=== PATIENT | female | born 1990 | race Caucasian/White ===

== ENCOUNTER 2016-02-10 22:27 | Outpatient (CLI) | payer SELFPAY ==
[2016-02-10 23:00] LABS: APPEARANCE,URINE CLEAR; BILIRUBIN,URINE NEGATIVE (NEGATIVE); GLUCOSE, URINE NEGATIVE (NEGATIVE); KETONES,URINE NEGATIVE (NEGATIVE); LEUKOCYTE ESTERASE,URINE NEGATIVE (NEGATIVE); NITRITE,URINE NEGATIVE (NEGATIVE); PROTEIN,URINE NEGATIVE (NEGATIVE); URINE SPECIFIC GRAVITY 1.014
[2016-02-10 23:19] LABS: URINE BARBITURATES SCREEN NEGATIVE; URINE METHADONE SCREEN NEGATIVE; URINE PHENCYCLIDINE SCREEN NEGATIVE
--- NOTE | 2016-02-11 04:48 | L&D General Admission ---
General Admit Datetime Report Generated by CPN: 02/11/2016 04:45 INFORMATION Patient Age: 26 (02/10/2016 22:27:QS system process) EDC: 04/27/2016 00:00 (02/10/2016 22:37:María Lattibeaudeir, RN) Para: 3 (02/11/2016 00:17:Malinda Ruvalcaba, RN) Baby, Number in Womb: 1 (02/11/2016 00:17:Malinda Ruvalcaba, RN) CARE Primary Bufferer: Other-Annotate (02/10/2016 22:56:Malinda Ruvalcaba RN) Bufferer Other: Dr Loera in [place] (02/10/2016 22:56:Malinda Ruvalcaba RN) Height (in): 68 (02/10/2016 23:27:QS system process) ALLERGIES Medication Allergy: Yes (02/10/2016 22:56:Malinda Ruvalcaba RN) Medication Allergies: diphenhydramine HCl (02/10/2016); zolpidem tartrate (02/10/2016); morphine/MO (02/10/2016); nickel (02/10/2016) (02/10/2016 23:27:QS system process) Medication Allergies: diphenhydramine HCl (03/25/2015); zolpidem tartrate (03/25/2015); morphine/MO (03/25/2015); nickel (03/25/2015) (02/10/2016 22:27:QS system process) Latex Allergy: No Latex Allergies (02/10/2016 22:56:Malinda Ruvalcaba RN) Food Allergies: none (02/10/2016 22:56:Malinda Ruvalcaba RN) Environmental Allergies: none (02/10/2016 22:56:Malinda Ruvalcaba RN) COMMUNICATION Primary Language: Martiniquais (02/10/2016 22:37:María Fallon RN) Medical Tx Preferred Language: Martiniquais (02/10/2016 22:37:María Fallon RN) Communication Barrier(s): None (02/10/2016 22:37:María Fallon RN) DEMOGRAPHICS Address: [address] [place] [id number] (02/10/2016 22:27:QS system process) Zipcode: [address] (02/10/2016 22:27:QS system process) Home (02/10/2016 22:27:QS system process) SSN: [id number] (02/10/2016 22:27:QS system process) Next of Kin Name: JUSTO HIGHTOWER (02/10/2016 22:27:QS system process) Next of Kin (02/10/2016 22:27:QS system process) Next of Kin Relationship: MO (02/10/2016 22:27:QS system process) Date of : 1990 (02/10/2016 22:27:QS system process) Marital Status: (02/10/2016 22:27:QS system process) Sex: Female (02/10/2016 22:27:QS system process) Race: (02/10/2016 22:27:QS system process) Ethnicity: Non- or (02/10/2016 22:27:QS system process) Taoism: Zoroastrian (02/10/2016 22:27:QS system process) LABS Hemoglobin: 9.1 L (02/11/2016 03:57:QS system process) Hematocrit: 26.1 L (02/11/2016 03:57:QS system process) MCV: 82 (02/11/2016 03:57:QS system process)
--- NOTE | 2016-02-11 04:48 | L&D Discharge Summary ---
OB Discharge Summary Datetime Report Generated by CPN: 02/11/2016 04:45 DISCHARGE DIAGNOSIS Diagnosis/Symptoms: False Labor Gestation: 29.0 Number of Babies in Womb: 1 Parity: 3 DIET/ACTIVITY/RESTRICTIONS Diet: Regular Activity: Normal Activity TEACHING/INSTRUCTIONS/REFERRALS Instructions Given To: Patient and Sig Other Instructions Understood: Patient Verbalized Understanding; Support Person Verbalized Understanding Referrals: None Educational Materials- Other: Labor DISCHARGE INFORMATION Discharged AMA: No Discharge Date/Time: 02/10/2016 23:57 Discharged To: Home Discharge Provider Name: Dr Rangel Accompanied By: Spouse Discharge Method: Wheelchair Condition: Stable FOLLOW UP INFORMATION Follow Up With: Other-Annotate Follow Up On: As Scheduled Follow Up Phone Number: Other-Annotate Comments: Patient to follow up with current OB provider in [place], [place]. Patient advised to go to hospital for contractions every 10 minutes, bleeding like a period, leaking of fluid, or decreased movement. Patient complaining of 5/5 pain, Dr Rangel on floor. Patient worked up for all labor concerns which were all within normal limits. and advised to be seen in ER per Dr Rangel for her pain as it is unrelated to .
--- NOTE | 2016-02-11 04:48 | Antepartum Discharge Summary ---
Antepartum DC Datetime Report Generated by CPN: 02/11/2016 04:45 DIET/ACTIVITY/RESTRICTIONS Diet: Regular (02/11/2016 00:17:Malinda Ruvalcaba, RN) Activity: Normal Activity (02/11/2016 00:17:Malinda Ruvalcaba, RN) TEACHING/INSTRUCTIONS/REFERRALS Instructions Given To: Patient and Sig Other (02/11/2016 00:17:Malinda Ruvalcaba, RN) Instructions Understood: Patient Verbalized Understanding; Support Person Verbalized Understanding (02/11/2016 00:17:Malinda Ruvalcaba RN) Referrals: None (02/11/2016 00:17:Malinda Ruvalcaba RN) Educational Materials- Other: Labor (02/11/2016 00:17:Malinda Ruvalcaba RN) DISCHARGE INFORMATION Discharged AMA: No (02/11/2016 00:17:Malinda Ruvalcaba RN) Discharge Date/Time: 02/10/2016 23:57 (02/11/2016 00:17:Malinda Ruvalcaba RN) Discharged To: Home (02/11/2016 00:17:Malinda Ruvalcaba RN) Discharge Provider Name: Dr Rangel (02/11/2016 00:17:Malinda Ruvalcaba RN) Accompanied By: Spouse (02/11/2016 00:17:Malinda Ruvalcaba RN) Discharge Method: Wheelchair (02/11/2016 00:17:Malinda Ruvalcaba RN) Condition: Stable (02/11/2016 00:17:Malinda Ruvalcaba RN) FOLLOW UP INFORMATION Follow Up With: Other-Annotate (02/11/2016 00:17:Malinda Ruvalcaba RN) Follow Up On: As Scheduled (02/11/2016 00:17:Malinda Ruvalcaba RN) Follow Up Phone Number: Other-Annotate (02/11/2016 00:17:Malinda Ruvalcaba RN) Comments: Patient to follow up with current OB provider in [place], [place]. Patient advised to go to hospital for contractions every 10 minutes, bleeding like a period, leaking of fluid, or decreased movement. Patient complaining of 5/5 pain, Dr Rangel on floor. Patient worked up for all labor concerns which were all within normal limits. and advised to be seen in ER per Dr Rangel for her pain as it is unrelated to . (02/11/2016 00:17:Malinda Ruvalcaba RN)
--- NOTE | 2016-02-11 04:48 | L&D Flow Sheet ---
LD Flowsheet Datetime Report Generated by CPN: 02/11/2016 04:45 Datetime: 02/10/2016 23:57 Additional Nursing Comments: Pt off unit via wheelchair for discharge. Pt requesting to be taken to ED for evaluation of her pain. (María Lattibeaudeir, RN) Datetime: 02/10/2016 23:46 Vital Signs Stage of : Antepartum (Malinda Ruvalcaba, RN) Uterine Activity Monitor Mode: External; Palpation (Malinda Ruvalcaba, RN) Resting Tone (Palpate): Relaxed (Malinda Ruvalcaba, RN) Contraction Comments: UTD if contractions present due to patient creating artifact by applying pressure to toco (witnessed). (Malinda Ruvalcaba, RN) Assessment A Monitor Mode: External US (Malinda Ruvalcaba, RN) FHR Baseline Rate : 140 (Malinda Ruvalcaba, RN) FHR Baseline Changes: No Baseline Change (Malinda Ruvalcaba, RN) Variability: Moderate 6-25 bpm (Malinda Ruvalcaba, RN) Accelerations: 15X15 (Malinda Ruvalcaba, RN) Decelerations: None (Malinda Ruvalcaba, RN) Pain Pain Scale: 5 (Malinda Ruvalcaba, RN) Pain Presence: Intermittent (Malinda Ruvalcaba, RN) Pain Type: Contraction (Malinda Ruvalcaba, RN) Pain Location: Abdomen; Back (Malinda Ruvalcaba, RN) Pain Relief Measures: Comfort Measures (Malinda Ruvalcaba, RN) Patient Care Comfort Measures: Breathing/Relaxation; Family Support (Malinda Ruvalcaba, RN) Communication Communication: RN at Bedside; RN Reviewed Strip (Malinda Ruvalcaba RN) LaborFlag: Antepartum (QS system process) Datetime: 02/10/2016 23:44 NBP Sys/Rubina/Mean (mmHg): 151 (QS system process) : 67 (Annotations: BP cuff moved to lower arm since pt continuously tenses arm whenever BP cuff tries to read on upper arm. Pt holding her breath while monitor trying to read BP at this time.) (María Fallon RN) : 97 (QS system process) Pulse: 96 (QS system process) Communication Comments: Informed pt that Dr. Rangel spoke with Dr. Carlton at [facility] and it was decided that if her cervical length was normal to discharge pt. Informed her that her baby looks normal on the monitor and cervical length was good. Informed pt that her abdomen is soft, no bleeding, no leaking fluid. Let her know that the pain she is feeling is not contraction/labor pain. Informed her that she should continue to see her regular OB physician but that if she feels that her pain is severe she can be seen in the ED to evaluate that as separate from her . Pt and FOB verbalized understanding. (María Fallon RN) LaborFlag: Antepartum (QS system process) Datetime: 02/10/2016 23:43 Communication Communication: Provider Orders Received (Malinda Ruvalcaba, RN) Communication Comments: Dr Rangel on floor, reviewed strip, lab results, and results of ultrasound. Orders received to D/C patient and F/U with her OB provider in [place]. (Malinda Ruvalcaba, RN) Datetime: 02/10/2016 23:03 Comments: monitors removed for patient transport to ultrasound (Malinda Ruvalcaba, RN) Datetime: 02/10/2016 23:01 Contraction Comments: patient placing hand on toco while RN at bedside, reminded patient to keep her hands off of the toco. (Malinda Ruvalcaba, RN) Datetime: 02/10/2016 23:00 Vital Signs Stage of : Antepartum (Malinda Ruvalcaba, RN) Uterine Activity Monitor Mode: External; Palpation (Malinda Ruvalcaba, RN) Frequency (min): "Very close" per patient (Malinda Ruvalcaba, RN) Resting Tone (Palpate): Relaxed (Malinda Ruvalcaba, RN) Contraction Comments: UTD due to patient creating (witnessed) artifact by continually placing pressure on toco. Educated patient multiple times on importance of keeping hands off of toco. (Malinda Ruvalcaba, RN) Assessment A Monitor Mode: External US (Malinda Ruvalcaba, RN) Monitor Interventions for FHR: Ultrasound Adjusted (Malinda Ruvalcaba, RN) FHR Baseline Rate : 145 (Malinda Ruvalcaba, RN) FHR Baseline Changes: No Baseline Change (Malinda Ruvalcaba, RN) Variability: Moderate 6-25 bpm (Malinda Ruvalcaba, RN) Accelerations: 15X15 (Malinda Ruvalcaba, RN) Decelerations: None (Malinda Ruvalcaba, RN) Pain Pain Scale: 5 (Malinda Ruvalcaba, RN) Pain Presence: Intermittent (Malinda Ruvalcaba, RN) Pain Type: Contraction (Malinda Ruvalcaba, RN) Pain Location: Abdomen (Malinda Ruvalcaba, RN) Pain Goal: 1 (Malinda Ruvalcaba, RN) Vaginal Exam Vaginal Bleeding: None (Malinda Ruvalcaba, RN) Maternal Assessment Level of Consciousness: Fully Conscious (Malinda Ruvalcaba, RN) DTR's/Clonus: DTRs 1+; No Clonus (Malinda Ruvalcaba, RN) Headache: Frontal (Malinda Ruvalcaba, RN) Breath Sounds, Left: Clear and Equal (Malinda Ruvalcaba, RN) Breath Sounds, Right: Clear and Equal (Malinda Ruvalcaba, RN) Nausea/Vomiting: Present (Malinda Ruvalcaba, RN) RUQ Epigastric Pain: Denies (Malinda Ruvalcaba, RN) Teaching Instructional Method: Verbal; Patient Instructed; Family/Support Person Instructed; Verbalized Understanding (Malinda Ruvalcaba RN) Plan of Care: Plan of Care Discussed (Malinda Ruvalcaba RN) Unit Routine: [employer] to Room; Call Ayala; Bed; Unit Personnel (Malinda Ruvalcaba RN) Labor/Induction: Labor Stages (Malinda Ruvalcaba RN) Pain Management: Comfort Measures (Malinda Ruvalcaba RN) Communication Communication: RN at Bedside; RN Reviewed Strip (Malinda Ruvalcaba RN) LaborFlag: Antepartum (QS system process) Datetime: 02/10/2016 22:59 Contraction Comments: Walked into room and witnessed patient with hand on toco. Patient removed hand and toco returned to reading resting tone. Asked patient to keep her hand of the monitors so that we can adequately record uterine activity (Malinda Ruvalcaba, RN) Datetime: 02/10/2016 22:56 Communication Comments: Dr Rangel spoke with Dr Murcia at [facility]. Patient discharged from [facility] earlier today for same complaint. (Malinda Ruvalcaba, RN) Datetime: 02/10/2016 22:51 Monitor Interventions for FHR: Ultrasound Adjusted (Malinda Ruvalcaba, RN)
--- NOTE | 2016-02-11 04:48 | L&D Current Admission ---
Current Admit Datetime Report Generated by CPN: 02/11/2016 04:45 ADMISSION INFORMATION Chief Complaint: Contractions (02/10/2016 23:00:Malinda Jordon, HARIKA)
--- NOTE | 2016-02-11 04:48 | L&D Admission Assessment ---
LD ADM ASMT Datetime Report Generated by CPN: 02/11/2016 04:45 WEIGHT Weight (lb): 207 (02/10/2016 23:27:QS system process) Weight (kg): 94.1 (02/10/2016 23:27:QS system process) PAIN Pain Scale: 5 (02/10/2016 23:46:Malinda Ruvalcaba, RN) Pain Scale: 5 (02/10/2016 23:00:Malinda Ruvalcaba, RN) Pain Presence: Intermittent (02/10/2016 23:46:Malinda Ruvalcaba RN) Pain Presence: Intermittent (02/10/2016 23:00:Malinda Ruvalcaba RN) Pain Type: Contraction (02/10/2016 23:46:Malinda Ruvalcaba RN) Pain Type: Contraction (02/10/2016 23:00:Malinda Ruvalcaba RN) Pain Location: Abdomen; Back (02/10/2016 23:46:Malinda Ruvalcaba RN) Pain Location: Abdomen (02/10/2016 23:00:Malinda Ruvalcaba RN) Pain Goal: 1 (02/10/2016 23:00:Malinda Ruvalcaba RN) Pain Related to Contraction: Yes (Annotations: per patient) (02/10/2016 23:00:Malinda Ruvalcaba RN) CONTRACTIONS Frequency (min): "Very close" per patient (02/10/2016 23:00:Malinda Ruvalcaba RN) Resting Tone [place]hr: Relaxed (02/10/2016 23:46:Malinda Ruvalcaba RN) Resting Tone Lehr: Relaxed (02/10/2016 23:00:Malinda Ruvalcaba RN) Contraction Comments: UTD if contractions present due to patient creating artifact by applying pressure to toco (witnessed). (02/10/2016 23:46:Malinda Ruvalcaba RN) Contraction Comments: patient placing hand on toco while RN at bedside, reminded patient to keep her hands off of the toco. (02/10/2016 23:01:Malinda Ruvalcaba RN) Contraction Comments: UTD due to patient creating (witnessed) artifact by continually placing pressure on toco. Educated patient multiple times on importance of keeping hands off of toco. (02/10/2016 23:00:Malinda Ruvalcaba, RN) Contraction Comments: Walked into room and witnessed patient with hand on toco. Patient removed hand and toco returned to reading resting tone. Asked patient to keep her hand of the monitors so that we can adequately record uterine activity (02/10/2016 22:59:Malinda Ruvalcaba, RN) NEURO Level of Consciousness: Fully Conscious (02/10/2016 23:00:Malinda Ruvalcaba, RN) DTR's/Clonus: DTRs 1+; No Clonus (02/10/2016 23:00:Malinda Ruvalcaba, RN) Headache: Frontal (02/10/2016 23:00:Malinda Ruvalcaba, RN) Dizziness: No (02/10/2016 23:00:Malinda Ruvalcaba, RN) Blurred Vision: No (02/10/2016 23:00:Malinda Ruvalcaba, RN) Extremity Numbness/Tingling : None (02/10/2016 23:00:Malinda Ruvalcaba, RN) Extremity Movement: Full Range of Motion (02/10/2016 23:00:Malinda Ruvalcaba, RN) CARDIOVASCULAR Heart Rhythm: Regular (02/10/2016 23:00:Malinda Ruvalcaba RN) Nailbeds: [place] (02/10/2016 23:00:Malinda Ruvalcaba RN) Capillary Refill: Less than 3 Seconds (02/10/2016 23:00:Malinda Ruvalcaba RN) Lower Extremities Edema: None (02/10/2016 23:00:Malinda Ruvalcaba RN) Lower Extremities Edema Degree: None (02/10/2016 23:00:Malinda Ruvalcaba RN) Upper Extremities Edema: None (02/10/2016 23:00:Malinda Ruvalcaba RN) Upper Extremities Edema Degree: None (02/10/2016 23:00:Malinda Ruvalcaba RN) Facial Edema: None (02/10/2016 23:00:Malinda Ruvalcaba RN) Jordana's Sign Left Leg: Negative (02/10/2016 23:00:Malinda Ruvalcaba RN) Jordana's Sign Right Leg: Negative (02/10/2016 23:00:Malinda Ruvalcaba RN) DVT RISK ASSESSMENT DVT Risk Age: Age less than 41 years (02/10/2016 23:00:Malinda Ruvalcaba RN) DVT Risk BMI: BMI 31 to 40 (02/10/2016 23:00:Malinda Ruvalcaba RN) DVT Risk Surgery: None Applicable (02/10/2016 23:00:Malinda Ruvalcaba RN) DVT Risk Other: Women Only- or (<1 month) (02/10/2016 23:00:Malinda Ruvalcaba, RN) DVT Risk Total: 2 (02/10/2016 23:00:QS system process) DVT Risk Text: Moderate Risk (10-20%) - Consider stockings, compresssion device, pharmacological therapy per hospital policy (02/10/2016 23:00:QS system process) RESPIRATORY Respiratory Effort: Unlabored; Regular Rhythm; Equal Expansion (02/10/2016 23:00:Malinda Ruvalcaba, RN) Breath Sounds, Left: Clear and Equal (02/10/2016 23:00:Malinda Ruvalcaba, RN) Breath Sounds, Right: Clear and Equal (02/10/2016 23:00:Malinda Ruvalcaba, RN) Cough Productivity: None (02/10/2016 23:00:Malinda Ruvalcaba, RN) GASTROINTESTINAL Nausea/Vomiting: Present (02/10/2016 23:00:Malinda Ruvalcaba, RN) Bowel Sounds: Normoactive; All Quadrants (02/10/2016 23:00:Malinda Ruvalcaba, RN) RUQ Epigastric Pain: Denies (02/10/2016 23:00:Malinda Ruvalcaba, RN) Bowel Patterns: Soft, Formed Stool (02/10/2016 23:00:Malinda Ruvalcaba, RN) Hemorrhoids: Present (02/10/2016 23:00:Malinda Ruvalcaba, RN) Diet Type: Regular diet (02/10/2016 23:00:Malinda Ruvalcaba, RN) GENITOURINARY Bladder: Nondistended (02/10/2016 23:00:Malinda Ruvalcaba, RN) Frequency of Urination: No (02/10/2016 23:00:Malinda Ruvalcaba, RN) Urination Burning: No (02/10/2016 23:00:Malinda Ruvalcaba, RN) CVA Tenderness: No (02/10/2016 23:00:Malinda Ruvalcaba, RN) INTEGUMENTARY Skin Color: Normal for Race (02/10/2016 23:00:Malinda Ruvalcaba, RN) Skin Temperature: Warm (02/10/2016 23:00:Malinda Ruvalcaba, RN) Skin Moisture: Dry (02/10/2016 23:00:Malinda Ruvalcaba, RN) SUPPORT Family Support: Significant Other supportive, at bedside frequently (02/10/2016 23:00:Malinda Ruvalcaba, RN) Emotional State: Anxious; Crying (02/10/2016 23:00:Malinda Ruvalcaba, RN) SAFETY Call Ayala Within Reach: Yes (02/10/2016 23:00:Malinda Ruvalcaba, RN) Side Rails Up: Yes (02/10/2016 23:00:Malinda Ruvalcaba, RN) Bed Wheels Locked: Yes (02/10/2016 23:00:Malinda Ruvalcaba, RN) Arm Bands Present: Yes (02/10/2016 23:00:Malinda Ruvalcaba, RN) Isolation: [place] (02/10/2016 23:00:Malinda Ruvalcaba, RN) FALL SCREEN Fall Risk History of Falling: (0) No (02/10/2016 23:00:Malinda Ruvalcaba RN) Fall Risk Secondary Diagnosis: (0) No (02/10/2016 23:00:Malinda Ruvalcaba RN) Fall Risk Ambulatory Aid: (0) None/Bedrest/Wheelchair/Nurse Assist (02/10/2016 23:00:Malinda Ruvalcaba RN) Fall Risk IV Therapy: (0) No (02/10/2016 23:00:Malinda Ruvalcaba RN) Fall Risk Gait: (0) Normal/Bedrest/Immobile (02/10/2016 23:00:Malinda Ruvalcaba RN) Fall Risk Mental Status: (0) Oriented to Own Ability (02/10/2016 23:00:Malinda Ruvalcaba RN) Fall Risk Score: 0 (02/10/2016 23:00:QS system process) Fall Risk Score Definition: No Risk: No action required (02/10/2016 23:00:QS system process) BABY A FHR Baseline Rate (bpm) Baby A: 140 (02/10/2016 23:46:Malinda Ruvalcaba RN) FHR Baseline Rate (bpm) Baby A: 145 (02/10/2016 23:00:Malinda Ruvalcaba RN) Variability Baby A: Moderate 6-25 bpm (02/10/2016 23:46:Malinda Ruvalcaba RN) Variability Baby A: Moderate 6-25 bpm (02/10/2016 23:00:Malinda Ruvalcaba RN) Accelerations Baby A: 15X15 (02/10/2016 23:46:Malinda Ruvalcaba RN) Accelerations Baby A: 15X15 (02/10/2016 23:00:Malinda Ruvalcaba RN) Decelerations Baby A: None (02/10/2016 23:46:Malinda Ruvalcaba RN) Decelerations Baby A: None (02/10/2016 23:00:Malinda Ruvalcaba RN)
== END 2016-02-10 23:57 | disposition home or self-care (01) ==
LOC: LC 22:27
PROVIDERS: ATTEND Obstetrics & Gynecology
PROC: 4A1HXCZ Monitoring of Products of Conception, Cardiac Rate, External Approach (ICD-10-PCS; principal; 2016-02-10)
DX: O47.03 False labor before 37 completed weeks of gestation, third trimester (principal); Z3A.29 29 weeks gestation of pregnancy
CPT/HCPCS: 59899; 81001; 76815; G0479; 80307

== ENCOUNTER 2016-02-11 00:08 | Inpatient (IN) | payer SELFPAY ==
[2016-02-11 04:11] LABS: ABSOLUTE EOSINOPHILS # (AUTO) 0.1 10^3/uL (0.0-0.6); ABSOLUTE LYMPHOCYTES (AUTO) 1.5 10^3/uL (0.5-4.7); ABSOLUTE MONOCYTES (AUTO) 0.6 10^3/uL (0.1-1.4); ABSOLUTE NEUT (AUTO) 6.2 10^3/uL (1.7-8.2); BASOPHILS % (AUTO) 0.2 % (0-2); EOSINOPHILS % (AUTO) 0.8 % (0-6); HEMATOCRIT 26.1 % (36.0-47.0); HEMOGLOBIN 9.1 g/dL (12.0-15.5); HGB HCT DIFFERENCE 1.2; LYMPHOCYTES % (AUTO) 17.7 % (13-45); MEAN CORPUSCULAR HEMOGLOBIN 28.4 pg (27.0-33.4); MEAN CORPUSCULAR HGB CONC 34.8 g/dL (32.0-36.0); MEAN CORPUSCULAR VOLUME 82 fl (80-97); MONOCYTES % (AUTO) 6.8 % (3-13); RED CELL DISTRIBUTION WIDTH 14.2 % (11.5-14.0); SEGMENTED NEUTROPHILS % (AUTO) 74.5 % (42-78); WHITE BLOOD COUNT 8.3 10^3/uL (4.0-10.5)
[2016-02-11 04:36] LABS: ALANINE AMINOTRANSFERASE 32 U/L (9-52); ALKALINE PHOSPHATASE 103 U/L (38-126); ANION GAP 7 (5-19); ASPARTATE AMINO TRANSFERASE 12 U/L (14-36); BILIRUBIN,TOTAL 0.8 mg/dL (0.2-1.3); BLOOD UREA NITROGEN 5 mg/dL (7-20); CALCIUM 8.5 mg/dL (8.4-10.2); CARBON DIOXIDE 25 mmol/L (22-30); CHLORIDE 105 mmol/L (98-107); CREATININE RESULT 0.71 mg/dL (0.52-1.25); GLUCOSE 90 mg/dL (75-110); LIPASE 110.5 U/L (23-300); POTASSIUM 3.7 mmol/L (3.6-5.0); SODIUM 136.5 mmol/L (137-145); TOTAL PROTEIN 5.8 g/dL (6.3-8.2)
[2016-02-11] MEDS ORDERED: NORMAL SALINE 1000 ML 500 ML IV ONE (06:44)
[2016-02-11] MEDS ORDERED: FAMOTIDINE INJ/PF 20 MG/2 ML SDV IV ONE (06:44)
[2016-02-11] MEDS ORDERED: ONDANSETRON HCL INJ/PF 4 MG/2 ML SDV IV ONE (06:44)
[2016-02-11] MEDS ORDERED: PROMETHAZINE HCL INJ 25 MG/1 ML VIAL IM ONE ×2 (06:45→10:58)
[2016-02-11] MEDS ORDERED: PROMETHAZINE HCL INJ 25 MG/1 ML VIAL ONE (06:51)
[2016-02-11 08:21] LABS: ABSOLUTE LYMPHOCYTES (AUTO) 1.1 10^3/uL (0.5-4.7); ABSOLUTE MONOCYTES (AUTO) 0.6 10^3/uL (0.1-1.4); BASOPHILS % (AUTO) 0.3 % (0-2); EOSINOPHILS % (AUTO) 0.6 % (0-6); HEMATOCRIT 21.9 % (36.0-47.0); HGB HCT DIFFERENCE 0.9; LYMPHOCYTES % (AUTO) 14.8 % (13-45); MEAN CORPUSCULAR HEMOGLOBIN 28.3 pg (27.0-33.4); MEAN CORPUSCULAR HGB CONC 34.5 g/dL (32.0-36.0); MEAN CORPUSCULAR VOLUME 82 fl (80-97); MONOCYTES % (AUTO) 7.6 % (3-13); RED BLOOD COUNT 2.67 10^6/uL (3.72-5.28); RED CELL DISTRIBUTION WIDTH 14.4 % (11.5-14.0); SEGMENTED NEUTROPHILS % (AUTO) 76.7 % (42-78); WHITE BLOOD COUNT 7.8 10^3/uL (4.0-10.5)
[2016-02-11 08:26] LABS: HEMOGLOBIN 7.6 g/dL (12.0-15.5)
[2016-02-11] MEDS ORDERED: NORMAL SALINE 1000 ML 1,000 ML IV ONE (08:35)
[2016-02-11] MEDS ORDERED: NORMAL SALINE 250 ML IV PRN ×2 (08:52)
--- NOTE | 2016-02-11 10:56 | ER Document Report ---
ED General - General Chief Complaint: Abdominal Pain Stated Complaint: NAUSEA TRAVEL OUTSIDE OF THE [place] IN LAST 30 DAYS: No - HPI Patient complains to provider of: upper abdominal pain nausea vomiting Notes: Patient coming in for evaluation of her for abdominal pain. Patient is approximately 29 weeks . Patient was initially evaluated in OB triage for Sawyer pain and transferred to the ER for further evaluation when she was observed and the fetus was found to be within normal limits. Patient states upper abdominal pain ongoing for the last to 3 days. Patient states nausea vomiting patient states she is currently vomiting of blood. Patient has multiple emesis bag beside her with blood-tinged liquid nonviscous no blood clots. Patient otherwise is hemodynamically stable. Patient has multiple requests for pain medications - Related Data Allergies/Adverse Reactions: diphenhydramine HCl [From Benadryl] Allergy (Verified 02/10/16 23:26) nickel [Nickel] Allergy (Verified 02/10/16 23:26) zolpidem tartrate [From Ambien] Allergy (Verified 02/10/16 23:26) morphine [Morphine] Adverse Reaction (Intermediate, Verified 02/10/16 23:26) episeal Allergy (Intermediate, Uncoded 03/25/15 13:17) Hives Home Medications: Current Home Medications #57/Iron/FA/Dss/Dha [Extra-Virt Plus Dha Softgel] 1 cap PO DAILY [History] Past Medical History - Social History Smoking Status: Never Smoker Chew tobacco use (# tins/day): No Frequency of alcohol use: None Drug Abuse: None Family History: Reviewed & Not Pertinent, CAD Patient has suicidal ideation: No Patient has homicidal ideation: No Neurological Medical History: Denies: Hx Seizures Renal/ Medical History: Reports: Hx Kidney Stones, Hx Ovarian Cysts, Hx Peritoneal Dialysis, Hx Pelvic Inflammatory Disease GI Medical History: Reports: Hx Gastritis - Hemorrhagic gastritis and duodenitis in February of 2015 Psychiatric Medical History: Reports: Hx Bipolar Disorder, Hx Depression Past Surgical History: Reports: Hx Appendectomy, Hx Section - x2, Hx Cholecystectomy, Hx Gynecologic Surgery - Laprascopic removal of cysts, Hx Oral Surgery - wisdom teeth removed at age 10, Hx Orthopedic Surgery - R ankle. Denies: Hx Hysterectomy - Immunizations Immunizations up to date: Yes Hx Diphtheria, Pertussis, Tetanus Vaccination: Yes Review of Systems - Review of Systems Constitutional: No symptoms reported EENT: No symptoms reported Cardiovascular: No symptoms reported Respiratory: No symptoms reported Gastrointestinal: Abdominal pain, Other - Hematemesis Genitourinary: No symptoms reported Female Genitourinary: No symptoms reported Musculoskeletal: No symptoms reported Skin: No symptoms reported Hematologic/Lymphatic: No symptoms reported Neurological/Psychological: No symptoms reported -: Yes All other systems reviewed and negative Physical Exam - Vital signs Vitals: Temp Pulse Resp BP Pulse Ox 98.7 F 100 24 H 118/72 98 02/11/16 01:00 02/11/16 01:00 02/11/16 01:00 02/11/16 01:00 02/11/16 01:00 Interpretation: Normal - General General appearance: Appears well, Alert - HEENT Head: Normocephalic, Atraumatic Eyes: Normal Pupils: PERRL - Respiratory Respiratory status: No respiratory distress Chest status: Nontender Breath sounds: Normal Chest palpation: Normal - Cardiovascular Rhythm: Regular Heart sounds: Normal auscultation Murmur: No - Abdominal Inspection: Normal, Gravid female Distension: No distension Bowel sounds: Normal Tenderness: Tender - Diffuse tenderness to palpation of the belly however patient has no tenderness with deep auscultation abdominal examination is inconsistent Organomegaly: No organomegaly - Back Back: Normal, Nontender - Extremities General upper extremity: Normal inspection, Nontender, Normal color, Normal ROM , Normal temperature General lower extremity: Normal inspection, Nontender, Normal color, Normal ROM , Normal temperature, Normal weight bearing. No: Jordana's sign - Neurological Neuro grossly intact: Yes Cognition: Normal Orientation: AAOx4 Bernice Coma Scale Eye Opening: Spontaneous Bernice Coma Scale Verbal: Oriented Bernice Coma Scale Motor: Obeys Commands [place] Coma Scale Total: 15 Speech: Normal Motor strength normal: LUE, RUE, LLE, RLE Sensory: Normal - Psychological Associated symptoms: Normal affect, Normal mood - Skin Skin Temperature: Warm Skin Moisture: Dry Skin Color: Normal Course - Re-evaluation Re-evalutation: 02/11/16 15:15 Patient coming in for feeling a blood upper abdominal pain. A [place] x-ray was obtained to assess for any signs of free air. Patient's previous medical history was reviewed showing a scope approximately one year ago showing some duodenitis nonspecific gastritis. Will likely this is the source of the patient 's bleeding. Although patient is retching, rule out a Jeannine-Childers tear. I did contact GI on-call Dr. Jerry who stated that he would be available for consult however will recommend nonaggressive management this time blood transfusions and observation. Discussed with the BACK UP SCAN COORDINATOR on-call Dr. Jensen who was concern that the patient will continue to bleed and not receive a scope year initially recommended transfer however didn't we were able to discuss the case with surgery on-call Dr. Browning who agreed to continue to monitor patient prescription for later this afternoon. Patient was made nothing by mouth. 2 IVs were established Pepcid was given to the patient I held off on any PPIs. Also held off on any narcotic medications. Patient was admitted - Vital Signs Vital signs: Temp Pulse Resp BP Pulse Ox 98.3 F 81 16 105/61 99 02/11/16 13:30 02/11/16 13:20 02/11/16 13:00 02/11/16 14:14 02/11/16 14:14 - Laboratory Result Diagrams: 02/11/16 13:12 02/11/16 03:57 Laboratory results interpreted by me: 02/11/16 02/11/16 02/11/16 03:57 03:57 03:57 RBC 3.20 L Hgb 9.1 L Hct 26.1 L RDW 14.2 H Plt Count 112 L Sodium 136.5 L BUN 5 L AST 12 L Total Protein 5.8 L Albumin 3.0 L Crossmatch See Detail 02/11/16 07:00 RBC 2.67 L Hgb 7.6 L Hct 21.9 L RDW 14.4 H Plt Count 100 L Sodium BUN AST Total Protein Albumin Crossmatch Critical Care Note - Critical Care Note Total time excluding time spent on procedures (mins): 35 Comments: Time spent managing GI bleed multiple calls to multiple specialties due to patient being Discharge - Discharge Clinical Impression: Upper GI bleed, Acute blood loss anemia, Thrombocytopenia Condition: Good Disposition: ADMITTED INPATIENT Admitting Provider: Estefanía Unit Admitted: Telemetry
--- NOTE | 2016-02-11 13:19 | PDOC H&P ---
History of Present Illness Admission Date/PCP: 02/11/16 11:53 KATHRYN FLORES DO Patient complains of: vomiting blood History of Present Illness: SHIMA HIGHTOWER is a 26 year old female at approx 29wks by reported LMP of 07/22/2015 giving CHENTE 04/27/2016. She presented to [facility] last pm with abd pain reportedly for the last 2-3 days and was evaluated and discharged then pt came in to be evaluated here because [facility] would not give her pain meds. She was evaluated by L&D here and no e/o OB cause of her pain was found. The provider on last evening then transferred the pt to the ER for evaluation. She has reportedly had a couple of episodes of hematemesis in the ER. Hb/HCt decreased while in ER after IVF. + Blood on gastric specimen. Known h/o Upper endoscopy here in 02/2015 for similar presentation and symptoms. She is requesting Stadol by name. Of note the pt has been known by several names and has several different names depending on the Hospital attended. She reports that she receives care at [facility] and also is seen with Dr. Wayne ([facility]). Will have pt sign release for her records since she has not had care here. She denies other symptoms except loose stools but reports this is normal with her pregnancies. She has rec'd phenergan and pepcid IV in ER. Known h/o gastritis and duodenitits on last upper endo with Dr. Browning last year 02/2015. Past Medical History LMP: 07-22-15 Gynecological Infection: No - denies Gynecological History Note: h/o multiple laparoscopies for ovarian cysts 1 Baby 1 Delivery: Spontaneous Vaginal Delivery 2 Baby 2 Delivery: : Low Cervical, Transverse 3 Baby 3 Delivery: : Low Cervical, Transverse Neurological Medical History: Denies: Seizures Psychiatric Medical History: Reports: Bipolar Disorder, Depression Social History Information Source: Patient Lives with: Family Smoking Status: Former Smoker - stopped smoking at positive Frequency of Alcohol Use: None Hx Recreational Drug Use: No Drugs: None Hx Prescription Drug Abuse: No - pt with many admissions req pain meds - Advance Directive Resuscitation Status: Full Code Family History Family History: Reviewed & Not Pertinent, CAD Parental Family History Reviewed: No Children Family History Reviewed: NA Sibling(s) Family History Reviewed.: NA Medication/Allergy Allergies/Adverse Reactions: diphenhydramine HCl [From Benadryl] Allergy (Verified 02/10/16 23:26) nickel [Nickel] Allergy (Verified 02/10/16 23:26) zolpidem tartrate [From Ambien] Allergy (Verified 02/10/16 23:26) morphine [Morphine] Adverse Reaction (Intermediate, Verified 02/10/16 23:26) episeal Allergy (Intermediate, Uncoded 03/25/15 13:17) Hives Review of Systems Constitutional: ABSENT: chills, fever(s), headache(s), weight gain, weight loss Eyes: ABSENT: visual disturbances Ears: ABSENT: hearing changes Cardiovascular: ABSENT: chest pain, dyspnea on exertion, edema, orthropnea, palpitations Respiratory: ABSENT: cough, hemoptysis Gastrointestinal: PRESENT: diarrhea, hematemesis, vomiting Genitourinary: ABSENT: dysuria, hematuria Musculoskeletal: ABSENT: joint swelling Integumentary: ABSENT: rash, wounds Neurological: ABSENT: abnormal gait, abnormal speech, confusion, dizziness, focal weakness, syncope Psychiatric: ABSENT: anxiety, depression, homidical ideation, suicidal ideation Endocrine: ABSENT: cold intolerance, heat intolerance, polydipsia, polyuria Hematologic/Lymphatic: ABSENT: easy bleeding, easy bruising Physical Exam Vital Signs: Temp Pulse Resp BP Pulse Ox 98.5 F 95 15 105/88 H 100 02/11/16 11:29 02/11/16 10:50 02/11/16 10:50 02/11/16 10:43 02/11/16 10:50 - Obstetrical Exam External Genitalia: normal Vagina: normal Dilation (cm): 0 - on L&D eval Tender: No Adhexa: not examined Result Impressions: Chest X-Ray 02/11/16 07:47 IMPRESSION: NO SIGNIFICANT RADIOGRAPHIC FINDING IN THE CHEST. Cervical length 3.8cm and closed per US see report. Assessment & Plan - Diagnosis (1) Upper GI bleed Is this a current diagnosis for this admission?: YesPlan: Consult Gen Surg Dr. Browning. Appreciate his assistance with the care of this pt. Pt rec'd pepcid in ER IV. Will defer to gen Surg re: maintance meds needed. Phenergan given in ER. Will manage nausea prn. Defer to Gen Surg if Upper GI needed and appreciate their willingness to help in management of patient. If continued need for transfusion due to continued GI bleed then pt will need transfer to another facility. (2) Acute blood loss anemia Is this a current diagnosis for this admission?: YesPlan: Some of anemia noted this am may be hemodilution from IVF. Will continue to monitor. Tranfusion to get hct above 25 for well being. Transfusion ordered. Will repeat labs after transfusion and cont to monitor CBC at intervals q 6-8 hours depending on if continued bleed suspected. (3) Gastritis and duodenitis Is this a current diagnosis for this admission?: YesPlan: per Upper Enodscopy last year. Appreciate Gen Surg assistance with pt. (4) Qualifiers: Weeks of gestation: 29 weeks Qualified Code(s): Z3A.29 - 29 weeks gestation of Is this a current diagnosis for this admission?: YesPlan: Will admit to EM[employer]ENT service with Gen Surg Consulting for assistance with her primary cause of admission. FWB reassuring last evening with CAT I NST. Will get Doptones q shift. Reviewed with pt that would not recommend IV stadol as she has requested due to her gestational age and if IV narcotics such as stadol required that she would need continuous monitoring. If needed may use small doses of shorter acting medications that are safe in . Suspect pt is somewhat drug seeking due to known history here of fabricating bleeding symptoms including abruption earlier in year. Pt has multiple assorted names on documented at [facility]. Will stabilize pt with transfusion and plan for discharge when hb/Hct stable and no e/o continued bleeding and when Gen Surg feels that she is stable for discharge. - Time Time Spent: 30 to 50 Minutes Critical Time spent with patient: Less than 15 minutes Medications reviewed and adjusted accordingly: Yes Anticipated discharge: Home Within: within 48 hours - Inpatient Certification Medical Necessity: Need Close Monitoring Due to Risk of Patient Decompensation, Need For IV Fluids Post Hospital Care: D/C Visitor Services Associate Documentation - Plan Summary Plan Summary: Admit, stabilize with transfusion may need endoscopy. Discharge when stable.
[2016-02-11 13:42] LABS: ABSOLUTE MONOCYTES (AUTO) 0.5 10^3/uL (0.1-1.4); ABSOLUTE NEUT (AUTO) 5.6 10^3/uL (1.7-8.2); BASOPHILS % (AUTO) 0.4 % (0-2); EOSINOPHILS % (AUTO) 0.5 % (0-6); HEMATOCRIT 23.3 % (36.0-47.0); HEMOGLOBIN 8.1 g/dL (12.0-15.5); LYMPHOCYTES % (AUTO) 13.5 % (13-45); MEAN CORPUSCULAR HEMOGLOBIN 28.4 pg (27.0-33.4); MEAN CORPUSCULAR HGB CONC 34.7 g/dL (32.0-36.0); MEAN CORPUSCULAR VOLUME 82 fl (80-97); RED BLOOD COUNT 2.85 10^6/uL (3.72-5.28); RED CELL DISTRIBUTION WIDTH 14.2 % (11.5-14.0); SEGMENTED NEUTROPHILS % (AUTO) 78.6 % (42-78); WHITE BLOOD COUNT 7.2 10^3/uL (4.0-10.5)
[2016-02-11] MEDS: DEXTROSE 5%-LACTATED RINGERS 1,000 ML IV PRN (16:03)
[2016-02-11] MEDS: PROMETHAZINE HCL INJ 25 MG/1 ML VIAL IV PRN ×2 (16:16→20:33)
--- NOTE | 2016-02-11 17:16 | PDOC CONSULTATION ---
Consultation Consult Date: 02/11/16 Attending physician:: MANASA BRYSON Consult reason:: GI bleeding History of Present Illness Admission Date/PCP: 02/11/16 14:09 KATHRYN FLORES DO History of Present Illness: SHIMA HIGHTOWER is a 26 year old female at approx 29wks by reported LMP of 07/22/2015 giving CHENTE 04/27/2016. She presented to [facility] last pm with abd pain reportedly for the last 2-3 days and was evaluated and discharged then pt came in to be evaluated here because [facility] would not give her pain meds. She was evaluated by L&D here and no e/o OB cause of her pain was found. The provider on last evening then transferred the pt to the ER for evaluation. She has reportedly had a couple of episodes of hematemesis in the ER. Hb/HCt decreased while in ER after IVF. + Blood on gastric specimen. Known h/o Upper endoscopy here in 02/2015 for similar presentation and symptoms. She is requesting Stadol by name. Of note the pt has been known by several names and has several different names depending on the Hospital attended. She reports that she receives care at [facility] and also is seen with Dr. Wayne ([facility]). Will have pt sign release for her records since she has not had care here. She denies other symptoms except loose stools but reports this is normal with her pregnancies. She has rec'd phenergan and pepcid IV in ER. Known h/o gastritis and duodenitits on last upper endo with Dr. Browning last year 02/2015. Surgeons comment: Patient known to me status post upper endoscopy last year for abdominal pain, findings consistent with gastritis. I saw the patient today at approximately 11:00 this morning in the emergency department. She was anxious, almost histrionic. Her heart rate was approximately 105. She did not appear to be in clinical evidence of hemorrhagic shock. Her abdomen was tender but without peritoneal signs. As discussed by Dr. Bryson, I suggested admit the patient for observation and treat with bowel rest, nothing by mouth, and transfuse as indicated from a standpoint. I was prepared to perform upper endoscopy if clinically indicated, but at this moment, I feel observation is most appropriate. Past Medical History Neurological Medical History: Denies: Seizures Psychiatric Medical History: Reports: Bipolar Disorder, Depression Past Surgical History Past Surgical History: Reports: Appendectomy, Section - x2, Cholecystectomy, Orthopedic Surgery - R ankle Denies: Hysterectomy Social History Lives with: Family Smoking Status: Never Smoker Frequency of Alcohol Use: None Hx Recreational Drug Use: No Drugs: None Hx Prescription Drug Abuse: Yes - Advance Directive Resuscitation Status: Full Code Family History Family History: Reviewed & Not Pertinent, CAD Parental Family History Reviewed: Yes Children Family History Reviewed: Yes Sibling(s) Family History Reviewed.: Yes Medication/Allergy Home Medications: #57/Iron/FA/Dss/Dha [Extra-Virt Plus Dha Softgel] 1 cap PO DAILY Allergies/Adverse Reactions: diphenhydramine HCl [From Benadryl] Allergy (Verified 02/10/16 23:26) nickel [Nickel] Allergy (Verified 02/10/16 23:26) zolpidem tartrate [From Ambien] Allergy (Verified 02/10/16 23:26) morphine [Morphine] Adverse Reaction (Intermediate, Verified 02/10/16 23:26) episeal Allergy (Intermediate, Uncoded 03/25/15 13:17) Hives Physical Exam Vital Signs: Temp Pulse Resp BP Pulse Ox 98.8 F 86 16 103/60 100 02/11/16 15:17 02/11/16 15:17 02/11/16 15:17 02/11/16 15:17 02/11/16 15:17 Intake & Output 02/10/16 02/11/16 02/12/16 06:59 06:59 06:59 Intake Total 300 Balance 300 Weight 94 kg General appearance: PRESENT: mild distress, other - Does not appear to be in hemorrhagic shock clinically GI/Abdominal exam: PRESENT: other - Appropriately tender, gravid uterus. No peritoneal signs. Results Impressions: Chest X-Ray 02/11/16 07:47 IMPRESSION: NO SIGNIFICANT RADIOGRAPHIC FINDING IN THE CHEST. Assessment & Plan - Diagnosis (1) Upper GI bleed Is this a current diagnosis for this admission?: YesPlan: 1. History as presented above; somewhat spurious given patient's previous history of factitious complaints of GI bleeding. However the patient is anemic likely due to dehydration now with rehydration, chronic anemia ; also has a history of thrombocytopenia however duration unknown. 2. Given the patient's hemodynamic status, and absence of any active GI bleeding, I do not believe upper endoscopy is indicated right now. Furthermore the patient is quite anxious and given her intrauterine , this would pose sedation and airway challenges likely requiring operating room management for an endoscopic procedure. 3. I discussed the above with Dr. Simeon and Dr. Camila combs and we will follow in consultation with you.
[2016-02-11] MEDS ORDERED: FUROSEMIDE INJ/PF 20 MG/2 ML SDV IV PRN (19:22)
[2016-02-11] MEDS ORDERED: FUROSEMIDE INJ/PF 20 MG/2 ML SDV IV SCH (20:00)
--- NOTE | 2016-02-11 20:07 | PDOC PROGRESS REPORT ---
Subjective Progress Note for:: 02/11/16 Subjective:: 26yo with reported h/o C/S x 2 with last having gastroschisis and 1st delivery reported delivery at 37wks for PreE, IOL for PreE and previa per pt. She is currently 29+1ega with no records here. Records requested from [facility] and [facility]. Reviewed with pt that due to multiple aliasis at different facilities that we would need to get record for all of her different names. She agreed. She was admitted from the ER for suspected GI Bleed with anemia and also noted to have thrombocytopenia. Review of labs for the last several years done and she has had thrombocytopenia and anemia both during and outside of (h/o prior reported GI bleed and with hemorrhagic ovarian cyst per records. She reports still having epigastric pain at this time. She was given pepcid in the ER. No episodes of hematemesis since she has arrived on the floor on 2. Physical Exam - Physical Exam Vital Signs: Temp Pulse Resp BP Pulse Ox 98.8 F 86 16 103/60 100 02/11/16 15:17 02/11/16 15:17 02/11/16 15:17 02/11/16 15:17 02/11/16 15:17 Intake & Output 02/10/16 02/11/16 02/12/16 06:59 06:59 06:59 Intake Total 300 Balance 300 Weight 94 kg General appearance: PRESENT: no acute distress, well-developed, well-nourished Head exam: PRESENT: atraumatic, normocephalic Cardiovascular exam: PRESENT: RRR. ABSENT: diastolic murmur, rubs, systolic murmur Pulses: PRESENT: normal dorsalis pedis pul, +2 pedal pulses bilateral GI/Abdominal exam: PRESENT: normal bowel sounds, soft. ABSENT: distended, guarding, mass, organolmegaly, rebound, tenderness Rectal exam: PRESENT: deferred Extremities exam: PRESENT: full ROM. ABSENT: calf tenderness, clubbing, pedal edema Neurological exam: PRESENT: alert, awake, oriented to person, oriented to place , oriented to time, oriented to situation, CN II-XII grossly intact. ABSENT: motor sensory deficit Psychiatric exam: PRESENT: appropriate affect, normal mood. ABSENT: homicidal ideation, suicidal ideation Skin exam: PRESENT: dry, intact, warm. ABSENT: cyanosis, rash - Obstetrical Exam External Genitalia: normal Vagina: normal Adhexa: not examined Result Laboratory Results: Labs- Last Values WBC 7.2 10^3/uL (4.0-10.5) 02/11/16 13:12 RBC 2.85 10^6/uL (3.72-5.28) L 02/11/16 13:12 Hgb 8.1 g/dL (12.0-15.5) L 02/11/16 13:12 Hct 23.3 % (36.0-47.0) L 02/11/16 13:12 MCV 82 fl (80-97) 02/11/16 13:12 MCH 28.4 pg (27.0-33.4) 02/11/16 13:12 MCHC 34.7 g/dL (32.0-36.0) 02/11/16 13:12 RDW 14.2 % (11.5-14.0) H 02/11/16 13:12 Plt Count 85 10^3/uL (150-450) L 02/11/16 13:12 Seg Neutrophils % 78.6 % (42-78) H 02/11/16 13:12 Lymphocytes % 13.5 % (13-45) 02/11/16 13:12 Monocytes % 7.0 % (3-13) 02/11/16 13:12 Eosinophils % 0.5 % (0-6) 02/11/16 13:12 Basophils % 0.4 % (0-2) 02/11/16 13:12 Absolute Neutrophils 5.6 10^3/uL (1.7-8.2) 02/11/16 13:12 Absolute Lymphocytes 1.0 10^3/uL (0.5-4.7) 02/11/16 13:12 Absolute Monocytes 0.5 10^3/uL (0.1-1.4) 02/11/16 13:12 Absolute Eosinophils 0.0 10^3/uL (0.0-0.6) 02/11/16 13:12 Absolute Basophils 0.0 10^3/uL (0.0-0.2) 02/11/16 13:12 Sodium 136.5 mmol/L (137-145) L 02/11/16 03:57 Potassium 3.7 mmol/L (3.6-5.0) 02/11/16 03:57 Chloride 105 mmol/L (98-107) 02/11/16 03:57 Carbon Dioxide 25 mmol/L (22-30) 02/11/16 03:57 Anion Gap 7 (5-19) 02/11/16 03:57 BUN 5 mg/dL (7-20) L 02/11/16 03:57 Creatinine 0.71 mg/dL (0.52-1.25) 02/11/16 03:57 Est GFR ( Amer) > 60 (>60) 02/11/16 03:57 Est GFR (Non-Af Amer) > 60 (>60) 02/11/16 03:57 Glucose 90 mg/dL (75-110) 02/11/16 03:57 Calcium 8.5 mg/dL (8.4-10.2) 02/11/16 03:57 Total Bilirubin 0.8 mg/dL (0.2-1.3) 02/11/16 03:57 Direct Bilirubin 0.0 mg/dL (0.0-0.3) 02/11/16 03:57 AST 12 U/L (14-36) L 02/11/16 03:57 ALT 32 U/L (9-52) 02/11/16 03:57 Alkaline Phosphatase 103 U/L (38-126) 02/11/16 03:57 Total Protein 5.8 g/dL (6.3-8.2) L 02/11/16 03:57 Albumin 3.0 g/dL (3.5-5.0) L 02/11/16 03:57 Lipase 110.5 U/L (23-300) 02/11/16 03:57 Gastric Occult Blood POSITIVE (NEGATIVE) 02/11/16 06:42 Blood Type O POSITIVE 02/11/16 03:57 Antibody Screen NEGATIVE 02/11/16 03:57 Crossmatch See Detail 02/11/16 03:57 Impressions: Chest X-Ray 02/11/16 07:47 IMPRESSION: NO SIGNIFICANT RADIOGRAPHIC FINDING IN THE CHEST. Assessment & Plan - Diagnosis (1) Upper GI bleed Is this a current diagnosis for this admission?: YesPlan: Consult Gen Surg Dr. Browning. Appreciate his assistance with the care of this pt. Pt rec'd pepcid in ER IV. Will defer to gen Surg re: maintance meds needed. Phenergan given in ER and prn on the floor. Will manage nausea prn. Defer to Gen Surg if Upper Endoscopy needed and appreciate their willingness to help in management of patient. Pt Hct risen to 23. Will transfuse 2 further units of PRBCs and rechk CBC with diff 4 hours after transfusion. If Hct continues to fall or not rise approp will notify Gen Surg for their assistance. If continued need for transfusion after this and if e/o continued GI bleed then pt will need transfer to another facility. (2) Acute blood loss anemia Is this a current diagnosis for this admission?: YesPlan: Some of anemia noted this am may be hemodilution from IVF. Pt noted to have baseline anemia and anemia of . Pt reports placed on BID iron for anemia by her Primary OB. Will continue to monitor. Tranfusion to get hct above 25 for well being. Transfusion ordered for additional 2 units of PRBCs. Will repeat labs after transfusion and cont to monitor CBC at intervals q 6-8 hours depending on if continued bleed suspected. (3) Gastritis and duodenitis Is this a current diagnosis for this admission?: YesPlan: per Upper Enodscopy last year. Appreciate Gen Surg assistance with pt. (4) Qualifiers: Weeks of gestation: 29 weeks Qualified Code(s): Z3A.29 - 29 weeks gestation of Is this a current diagnosis for this admission?: YesPlan: Continue observation with Consultation assistance from Gen Surg. FWB reassuring last evening with CAT I NST. Will get Doptones q shift. Reviewed with pt that would not recommend IV stadol as she has requested due to her gestational age and if IV narcotics such as stadol required that she would need continuous monitoring and poss emergent delivery if decompensation. If needed may use small doses of shorter acting medications that are safe in . Suspect pt is somewhat drug seeking due to known history here of fabricating bleeding symptoms including abruption earlier in year as well as use of multiple names at different facilities. Pt has multiple assorted names on documented at [facility]. Will stabilize pt with transfusion and plan for discharge when hb/Hct stable and no e/o continued bleeding and when Gen Surg feels that she is stable for discharge. (5) Thrombocytopenia Is this a current diagnosis for this admission?: YesPlan: Reviewed labs with e/o of intermittent Thrombocytopenia. May have component of Gestational thrombocytopenia at this time. However, Platlets decreased after 2 units of PRBCs. D/w Hematology Dr. Espana re: patient and agrees with 2 more units of transfusion to improve Hb/Hct at this time. Will hold platlet transfusion at this time per his recommendations. May need outpt iron infusions. If platlets continue to decrease Hematology recommended to consider steroids in case of ITP. Hematology will eval in am. Pt advised of consult and reason for consult and plan of care. Pt agrees to 2 additional units of transfusion. - Time Time Spent with patient: 15-24 minutes Critical Time spent with patient: Less than 15 minutes Medications reviewed and adjusted accordingly: Yes Anticipated discharge: Home Within: within 48 hours - Inpatient Certification Medical Necessity: Need Close Monitoring Due to Risk of Patient Decompensation, Need For IV Fluids Post Hospital Care: D/C Solution Engineer Documentation
[2016-02-12] MEDS: PROMETHAZINE HCL INJ 25 MG/1 ML VIAL IV PRN ×4 (00:47→22:29)
[2016-02-12 10:34] LABS: ABSOLUTE BASOPHILS # (AUTO) 0.1 10^3/uL (0.0-0.2); ABSOLUTE MONOCYTES (AUTO) 0.6 10^3/uL (0.1-1.4); ABSOLUTE NEUT (AUTO) 4.7 10^3/uL (1.7-8.2); EOSINOPHILS % (AUTO) 0.6 % (0-6); HEMATOCRIT 30.6 % (36.0-47.0); HGB HCT DIFFERENCE 0.9; LYMPHOCYTES % (AUTO) 15.8 % (13-45); MEAN CORPUSCULAR HEMOGLOBIN 28.2 pg (27.0-33.4); MEAN CORPUSCULAR HGB CONC 34.3 g/dL (32.0-36.0); MEAN CORPUSCULAR VOLUME 82 fl (80-97); MONOCYTES % (AUTO) 9.2 % (3-13); RED BLOOD COUNT 3.72 10^6/uL (3.72-5.28); RED CELL DISTRIBUTION WIDTH 14.6 % (11.5-14.0); SEGMENTED NEUTROPHILS % (AUTO) 73.4 % (42-78); WHITE BLOOD COUNT 6.4 10^3/uL (4.0-10.5)
[2016-02-12 10:38] LABS: HEMOGLOBIN 10.5 g/dL (12.0-15.5)
--- NOTE | 2016-02-12 14:07 | PDOC CONSULTATION ---
Consultation Consult Date: 02/12/16 Consult reason:: Anemia. thrombocytopenia History of Present Illness Admission Date/PCP: 02/11/16 14:09 KATHRYN FLORES DO History of Present Illness: SHIMA HIGHTOWER is a 26 year old female at approx 29wks by reported LMP of 07/22/2015 giving CHENTE 04/27/2016 who was admitted for anemia and hematemesis She presented to [facility] last pm initially with abdominal pain reportedly for the last 2-3 days and was evaluated and discharged. She then presented here to be evaluated because [facility] would not give her pain meds and she has a known h/o drug seeking behavior. She was evaluated by L&D here and no e/o OB cause of her pain was found. The provider on last evening then transferred the pt to the ER for evaluation. She has reportedly had a couple of episodes of hematemesis in the ER. Hb/HCt decreased while in ER after IVF. + Blood on gastric specimen. Known h/o Upper endoscopy here in 02/2015 for similar presentation and symptoms. She is requesting Stadol by name. Of note, the pt has been known by several names and has several different names depending on the Hospital attended. She reports that she receives care at [facility] and also is seen with Dr. Wayne ([facility]). Will have pt sign release for her records since she has not had care here. She denies other symptoms except loose stools but reports this is normal with her pregnancies. Known h/o gastritis and duodenitits on last upper endo with Dr. Browning last year 02/2015. She apparently has had slightly lower platelets in the past even when not but denies any significant bleeding until now. Past Medical History Neurological Medical History: Denies: Seizures GI Medical History: Reports: Other - Gastritis Psychiatric Medical History: Reports: Bipolar Disorder, Depression Past Surgical History Past Surgical History: Reports: Appendectomy, Section - x2, Cholecystectomy, Orthopedic Surgery - R ankle Denies: Hysterectomy Social History Lives with: Family Smoking Status: Never Smoker Frequency of Alcohol Use: None Hx Recreational Drug Use: No Drugs: None Hx Prescription Drug Abuse: Yes - Advance Directive Resuscitation Status: Full Code Family History Family History: Reviewed & Not Pertinent, CAD Parental Family History Reviewed: Yes Children Family History Reviewed: Yes Sibling(s) Family History Reviewed.: Yes Medication/Allergy Home Medications: #57/Iron/FA/Dss/Dha [Extra-Virt Plus Dha Softgel] 1 cap PO DAILY Allergies/Adverse Reactions: diphenhydramine HCl [From Benadryl] Allergy (Verified 02/10/16 23:26) nickel [Nickel] Allergy (Verified 02/10/16 23:26) zolpidem tartrate [From Ambien] Allergy (Verified 02/10/16 23:26) morphine [Morphine] Adverse Reaction (Intermediate, Verified 02/10/16 23:26) episeal Allergy (Intermediate, Uncoded 03/25/15 13:17) Hives Review of Systems Constitutional: PRESENT: as per HPI Gastrointestinal: PRESENT: abdominal pain Psychiatric: PRESENT: other - bipolar ds Physical Exam Vital Signs: Temp Pulse Resp BP Pulse Ox 98.1 F 71 18 98/53 L 100 02/12/16 12:12 02/12/16 12:12 02/12/16 12:12 02/12/16 12:12 02/12/16 12:12 Intake & Output 02/11/16 02/12/16 02/13/16 06:59 06:59 06:59 Intake Total 1725 Output Total 33 Balance 1692 Weight 94 kg General appearance: PRESENT: no acute distress Head exam: PRESENT: normocephalic Eye exam: PRESENT: conjunctiva pale Ear exam: PRESENT: normal external ear exam Mouth exam: PRESENT: moist Respiratory exam: PRESENT: decreased breath sounds Cardiovascular exam: PRESENT: RRR GI/Abdominal exam: PRESENT: soft - gravid, no rebound Musculoskeletal exam: PRESENT: full ROM Neurological exam: PRESENT: alert, oriented to person, oriented to place, oriented to time, oriented to situation Psychiatric exam: PRESENT: appropriate affect Results Laboratory Results: 02/12/16 10:25 02/12/16 02/12/16 02/12/16 07:40 10:20 10:25 WBC Cancelled 6.4 RBC Cancelled 3.72 Hgb Cancelled 10.5 L D Hct Cancelled 30.6 L MCV Cancelled 82 MCH Cancelled 28.2 MCHC Cancelled 34.3 RDW Cancelled 14.6 H Plt Count Cancelled 98 L Seg Neutrophils % Cancelled 73.4 Lymphocytes % Cancelled 15.8 Monocytes % Cancelled 9.2 Eosinophils % Cancelled 0.6 Basophils % Cancelled 1.0 Absolute Neutrophils Cancelled 4.7 Absolute Lymphocytes Cancelled 1.0 Absolute Monocytes Cancelled 0.6 Absolute Eosinophils Cancelled 0.0 Absolute Basophils Cancelled 0.1 Iron 343 H Impressions: Chest X-Ray 02/11/16 07:47 IMPRESSION: NO SIGNIFICANT RADIOGRAPHIC FINDING IN THE CHEST. Assessment & Plan - Diagnosis (1) Qualifiers: Weeks of gestation: 29 weeks Qualified Code(s): Z3A.29 - 29 weeks gestation of Is this a current diagnosis for this admission?: YesPlan: Per OB (2) Thrombocytopenia Is this a current diagnosis for this admission?: YesPlan: Check antiplatelet antibodies, LDH, Coomb's, haptoglobin to rule out hemolysis (3) Acute blood loss anemia Is this a current diagnosis for this admission?: YesPlan: Follow up H/H and check iron stores. Treat with iron if indicated. Possible EGD if recurrent GI blood loss. Treat with PPI - Time Time Spent: 50 to 70 Minutes Critical Time spent with patient: 25-34 minutes Medications reviewed and adjusted accordingly: Yes - Inpatient Certification Medical Necessity: Need Close Monitoring Due to Risk of Patient Decompensation
--- NOTE | 2016-02-12 15:03 | PDOC PROGRESS REPORT ---
Subjective Progress Note for:: 02/12/16 Subjective:: Pt stated this am that she had no further emesis since last night and that phenergan was helping. Pt stated no pain. Pt just told nurse that she vomited blood into toilet but nurse was unable to verify. Pt is known poor historian with significant prevarification usually to obtain narcotic prescriptions. Currently pt expresses no pain or obstetric symptoms. General Surgery to see regarding possible endoscopy though pt seems stable at this point. She is s/p 4 unit transfusion. She has been seen by Hematology for chronic anemia and thrombocytopenia and is undergoing evaluation. Will start PPI as recommended Physical Exam - Physical Exam Vital Signs: Temp Pulse Resp BP Pulse Ox 98.1 F 71 18 98/53 L 100 02/12/16 12:12 02/12/16 12:12 02/12/16 12:12 02/12/16 12:12 02/12/16 12:12 Intake & Output 02/11/16 02/12/16 02/13/16 06:59 06:59 06:59 Intake Total 1725 Output Total 33 Balance 1692 Weight 94 kg General appearance: PRESENT: no acute distress, cooperative Respiratory exam: PRESENT: clear to auscultation jordan Cardiovascular exam: PRESENT: RRR GI/Abdominal exam: PRESENT: normal bowel sounds, soft. ABSENT: distended, guarding, mass, organolmegaly, rebound, tenderness - Obstetrical Exam External Genitalia: not examined Vagina: normal, not examined Tender: No - no tightening like ctx either Adhexa: not examined Result Laboratory Results: 02/12/16 10:25 02/12/16 02/12/16 02/12/16 07:40 10:20 10:25 WBC Cancelled 6.4 RBC Cancelled 3.72 Hgb Cancelled 10.5 L D Hct Cancelled 30.6 L MCV Cancelled 82 MCH Cancelled 28.2 MCHC Cancelled 34.3 RDW Cancelled 14.6 H Plt Count Cancelled 98 L Seg Neutrophils % Cancelled 73.4 Lymphocytes % Cancelled 15.8 Monocytes % Cancelled 9.2 Eosinophils % Cancelled 0.6 Basophils % Cancelled 1.0 Absolute Neutrophils Cancelled 4.7 Absolute Lymphocytes Cancelled 1.0 Absolute Monocytes Cancelled 0.6 Absolute Eosinophils Cancelled 0.0 Absolute Basophils Cancelled 0.1 Iron 343 H Impressions: Chest X-Ray 02/11/16 07:47 IMPRESSION: NO SIGNIFICANT RADIOGRAPHIC FINDING IN THE CHEST. Assessment & Plan - Diagnosis (1) Acute blood loss anemia Is this a current diagnosis for this admission?: Yes (2) Qualifiers: Weeks of gestation: 29 weeks Qualified Code(s): Z3A.29 - 29 weeks gestation of Is this a current diagnosis for this admission?: Yes (3) Gastritis and duodenitis Is this a current diagnosis for this admission?: YesPlan: begin PPI
--- NOTE | 2016-02-12 16:24 | PDOC PROGRESS REPORT ---
Subjective Progress Note for:: 02/12/16 Subjective:: Minimal nausea, reports very small volume bloody emesis earlier, no abdominal pain. Passing flatus. Reports nonbloody diarrhea - typical for her during . Physical Exam Vital Signs: Temp Pulse Resp BP Pulse Ox 98.1 F 71 18 98/53 L 100 02/12/16 12:12 02/12/16 12:12 02/12/16 12:12 02/12/16 12:12 02/12/16 12:12 Intake & Output 02/11/16 02/12/16 02/13/16 06:59 06:59 06:59 Intake Total 1725 Output Total 33 Balance 1692 Weight 94 kg General appearance: PRESENT: no acute distress Eye exam: PRESENT: EOMI Mouth exam: PRESENT: tongue midline GI/Abdominal exam: PRESENT: soft. ABSENT: distended - abdomen, but nondistended., tenderness Neurological exam: PRESENT: alert, oriented to situation Results Laboratory Results: 02/12/16 10:25 02/12/16 02/12/16 02/12/16 07:40 10:20 10:25 WBC Cancelled 6.4 RBC Cancelled 3.72 Hgb Cancelled 10.5 L D Hct Cancelled 30.6 L MCV Cancelled 82 MCH Cancelled 28.2 MCHC Cancelled 34.3 RDW Cancelled 14.6 H Plt Count Cancelled 98 L Seg Neutrophils % Cancelled 73.4 Lymphocytes % Cancelled 15.8 Monocytes % Cancelled 9.2 Eosinophils % Cancelled 0.6 Basophils % Cancelled 1.0 Absolute Neutrophils Cancelled 4.7 Absolute Lymphocytes Cancelled 1.0 Absolute Monocytes Cancelled 0.6 Absolute Eosinophils Cancelled 0.0 Absolute Basophils Cancelled 0.1 Iron 343 H Impressions: Chest X-Ray 02/11/16 07:47 IMPRESSION: NO SIGNIFICANT RADIOGRAPHIC FINDING IN THE CHEST. Assessment & Plan - Diagnosis (1) Upper GI bleed Is this a current diagnosis for this admission?: YesPlan: Patient reports small volume bloody emesis earlier, but was not witnessed by nursing. She is reminded multiple times by nursing to vomited the emesis bag for inspection. Appropriate response to transfusion. Recommend follow-up with gastroenterology as an outpatient.
[2016-02-12] MEDS: DEXTROSE 5%-LACTATED RINGERS 1,000 ML IV PRN (17:08)
[2016-02-12] MEDS: LANSOPRAZOLE 15 MG TAB.RAP.DR PO SCH (17:08)
[2016-02-13] MEDS: LANSOPRAZOLE 15 MG TAB.RAP.DR PO SCH ×2 (06:00→16:46)
[2016-02-13] MEDS: DEXTROSE 5%-LACTATED RINGERS 1,000 ML IV PRN (06:01)
[2016-02-13 07:39] LABS: ABSOLUTE EOSINOPHILS # (AUTO) 0.1 10^3/uL (0.0-0.6); ABSOLUTE LYMPHOCYTES (AUTO) 1.4 10^3/uL (0.5-4.7); ABSOLUTE MONOCYTES (AUTO) 0.6 10^3/uL (0.1-1.4); ABSOLUTE NEUT (AUTO) 4.4 10^3/uL (1.7-8.2); BASOPHILS % (AUTO) 0.4 % (0-2); EOSINOPHILS % (AUTO) 1.4 % (0-6); HEMATOCRIT 30.5 % (36.0-47.0); HEMOGLOBIN 10.6 g/dL (12.0-15.5); HGB HCT DIFFERENCE 1.3; LYMPHOCYTES % (AUTO) 21.4 % (13-45); MEAN CORPUSCULAR HEMOGLOBIN 28.3 pg (27.0-33.4); MEAN CORPUSCULAR HGB CONC 34.7 g/dL (32.0-36.0); MEAN CORPUSCULAR VOLUME 82 fl (80-97); MONOCYTES % (AUTO) 9.4 % (3-13); RED BLOOD COUNT 3.74 10^6/uL (3.72-5.28); RED CELL DISTRIBUTION WIDTH 14.6 % (11.5-14.0); SEGMENTED NEUTROPHILS % (AUTO) 67.4 % (42-78); WHITE BLOOD COUNT 6.5 10^3/uL (4.0-10.5)
[2016-02-13 08:23] VITALS: BP 99/50
--- NOTE | 2016-02-13 08:37 | PDOC PROGRESS REPORT ---
Subjective Subjective:: Pt reports feeling well, no new complaints Physical Exam - Physical Exam Vital Signs: Temp Pulse Resp BP Pulse Ox 98.2 F 73 16 99/50 L 98 02/13/16 08:19 02/13/16 08:19 02/13/16 08:19 02/13/16 08:19 02/13/16 08:19 Intake & Output 02/12/16 02/13/16 02/14/16 06:59 06:59 06:59 Intake Total 1725 1368 Output Total 33 1400 Balance 1692 -32 Weight 94 kg General appearance: PRESENT: no acute distress, cooperative, well-nourished GI/Abdominal exam: PRESENT: normal bowel sounds, soft - Obstetrical Exam External Genitalia: not examined Vagina: normal, not examined Adhexa: not examined Result Laboratory Results: 02/13/16 07:30 02/12/16 02/12/16 02/12/16 07:40 10:20 10:25 WBC Cancelled 6.4 RBC Cancelled 3.72 Hgb Cancelled 10.5 L D Hct Cancelled 30.6 L MCV Cancelled 82 MCH Cancelled 28.2 MCHC Cancelled 34.3 RDW Cancelled 14.6 H Plt Count Cancelled 98 L Seg Neutrophils % Cancelled 73.4 Lymphocytes % Cancelled 15.8 Monocytes % Cancelled 9.2 Eosinophils % Cancelled 0.6 Basophils % Cancelled 1.0 Absolute Neutrophils Cancelled 4.7 Absolute Lymphocytes Cancelled 1.0 Absolute Monocytes Cancelled 0.6 Absolute Eosinophils Cancelled 0.0 Absolute Basophils Cancelled 0.1 Iron 343 H 02/13/16 07:30 WBC 6.5 RBC 3.74 Hgb 10.6 L Hct 30.5 L MCV 82 MCH 28.3 MCHC 34.7 RDW 14.6 H Plt Count 103 L Seg Neutrophils % 67.4 Lymphocytes % 21.4 Monocytes % 9.4 Eosinophils % 1.4 Basophils % 0.4 Absolute Neutrophils 4.4 Absolute Lymphocytes 1.4 Absolute Monocytes 0.6 Absolute Eosinophils 0.1 Absolute Basophils 0.0 Iron Impressions: Chest X-Ray 02/11/16 07:47 IMPRESSION: NO SIGNIFICANT RADIOGRAPHIC FINDING IN THE CHEST. Assessment & Plan - Diagnosis (1) Qualifiers: Weeks of gestation: 29 weeks Qualified Code(s): Z3A.29 - 29 weeks gestation of Is this a current diagnosis for this admission?: YesPlan: Pt will f/u with her OB in [facility] [place] next week (2) Upper GI bleed Is this a current diagnosis for this admission?: YesPlan: Pt is stable, will d/c home and f/u as an outpt
== END 2016-02-13 18:50 | disposition home or self-care (01) | DRG 781 ==
LOC: ER 00:08 → EH 11:53 → UNDOADMIN 11:53 → EH 14:09 → 2N 14:43 → EH 14:43
PROVIDERS: ADMIT Student in an Organized Health Care Education/Training Program; ATTEND Student in an Organized Health Care Education/Training Program
PROC: 30233P1 Transfusion of Nonautologous Frozen Red Cells into Peripheral Vein, Percutaneous Approach (ICD-10-PCS; principal; 2016-02-11)
DX: O99.613 Diseases of the digestive system complicating pregnancy, third trimester (principal); D62 Acute posthemorrhagic anemia; K92.0 Hematemesis; O99.013 Anemia complicating pregnancy, third trimester; O99.113 Other diseases of the blood and blood-forming organs and certain disorders involving the immune mechanism complicating pregnancy, third trimester; K29.70 Gastritis, unspecified, without bleeding; K29.80 Duodenitis without bleeding; O99.343 Other mental disorders complicating pregnancy, third trimester; Z3A.29 29 weeks gestation of pregnancy; F31.9 Bipolar disorder, unspecified; Z90.49 Acquired absence of other specified parts of digestive tract; D69.6 Thrombocytopenia, unspecified; O99.283 Endocrine, nutritional and metabolic diseases complicating pregnancy, third trimester; E86.0 Dehydration; Z76.5 Malingerer [conscious simulation]; Z88.6 Allergy status to analgesic agent; Z88.8 Allergy status to other drugs, medicaments and biological substances; Z87.891 Personal history of nicotine dependence
CPT/HCPCS: 36415; 36430; 71020; 80053; 82271; 83010; 83540; 83615; 83690; 85025; 86850; 86880; 86900; 86901; 86920; 96361; 96372; 96374; 99291; J1940; J2550; J7030; J7050; P9016; S0028